=== PATIENT | female | born 1975 | race Hispanic/Latino ===

== ENCOUNTER 2016-12-13 08:13 | Emergency (ER) | payer OTHER ==
[~2016-12-13] VITALS: Ht 160 cm; Wt 78.9 kg
[~2016-12-13 08:13] MED LIST: FISH OIL 1,0001 EAC1 PO; IBUPROFEN800 MG PO; NORCO 5-325 TA1 EACH PO; PERCOCET 5-3251 EACH PO; SLEEP MED; VIVELLE-DOT1 EAC1 TD; ZOFRAN ODT4 MG PO; ZOLOFT50 MG PO
[2016-12-13] MEDS ORDERED: KEFLEX500 MG PO (09:43)
[2016-12-13] MEDS ORDERED: ONDANSETRON ODT8 MG PO (09:46)
== END 2016-12-13 10:31 | disposition home or self-care (01) ==
LOC: ED 08:13
DX: N10 Acute pyelonephritis (principal); Z90.710 Acquired absence of both cervix and uterus; Z88.5 Allergy status to narcotic agent; Z79.899 Other long term (current) drug therapy
CPT/HCPCS: 80053; 81001; 83605; 85025; 87077; 87088; 87186; 96361; 96365; 96375; 99283; J0696; J1885; J2405; J7030

== ENCOUNTER 2021-01-26 06:47 | Emergency (ER) | payer OTHER ==
[~2021-01-26] VITALS: Ht 160 cm; Wt 72.6 kg
[~2021-01-26 06:47] MED LIST changes: +CYCLOBENZAPRINE10 MG PO; +DICLOFENAC SODI75 MG PO; +KEFLEX500 MG PO; +ONDANSETRON ODT8 MG PO; +TYLENOL325 MG PO
[2021-01-26] MEDS ORDERED: MELATONIN5 M2 PO (07:10)
[2021-01-26] MEDS ORDERED: BACTRIM DS TAB1 EACH PO (10:08)
== END 2021-01-26 10:32 | disposition home or self-care (01) ==
LOC: ED 06:47
PROC: 0H9U0ZX Drainage of Left Breast, Open Approach, Diagnostic (ICD-10-PCS; principal; 2021-01-26)
DX: N61.1 Abscess of the breast and nipple (principal); Z90.710 Acquired absence of both cervix and uterus; Z88.5 Allergy status to narcotic agent
CPT/HCPCS: 10060; 76642; 77066; 99284-25; G0279

== ENCOUNTER 2021-10-09 10:00 | Emergency (ER) | payer OTHER ==
[~2021-10-09] VITALS: Ht 160 cm; Wt 72.6 kg
[~2021-10-09 10:00] MED LIST changes: +BACTRIM DS TAB1 EACH PO; +MELATONIN5 M2 PO
[2021-10-09] MEDS ORDERED: HYDROCODON-ACE1 EA10 PO (12:38)
== END 2021-10-09 12:50 | disposition home or self-care (01) ==
LOC: ED 10:00
DX: N64.4 Mastodynia (principal); Z88.5 Allergy status to narcotic agent
CPT/HCPCS: 36415; 76604; 76642; 85025; 99284-25

== ENCOUNTER 2023-06-23 09:33 | Emergency (ER) | payer OTHER ==
[~2023-06-23] VITALS: Ht 160 cm; Wt 79.2 kg
[~2023-06-23 09:33] MED LIST changes: +HYDROCODON-ACE1 EA10 PO
[2023-06-23] MEDS ORDERED: HYDROmorphone HCL 1 MG/ML SYR IV PRN (10:30)
[2023-06-23] MEDS ORDERED: SODIUM CHLORIDE 0.9% 1,000 ML IV ONE (10:30)
[2023-06-23] MEDS ORDERED: ondansetron HCL 4 MG/2 ML VIAL IV ONE (10:30)
[2023-06-23 10:35] LABS: BASOPHILS 0.4 % (0-2); EOSINOPHILS 0.3 % (0-6); HEMATOCRIT 36.4 % (35.0-50.0); HEMOGLOBIN 12.9 g/dL (12.0-18.0); LYMPHOCYTES 27.8 % (24-44); MCH 31.8 (27-36); MCHC 35.5 g/dl (30-36); MCV 89.6 fl (81-99); MONOCYTES 5.3 % (0-12); NEUTROPHILS 66.2 % (39-80); PLATELET COUNT 291 K/uL (140-440); RBC 4.06 M/ul (4.3-5.7); RDW 13.2 (10.5-15.0)
[2023-06-23 10:48] LABS: ALBUMIN 3.6 g/dL (3.4-5.0); ALBUMIN/GLOBULIN RATIO 0.82 (1.1-2.4); ANION GAP 14.8 (7-21); BILIRUBIN, TOTAL 0.3 ng/dL (0.2-1.0); BUN/CREATININE RATIO 14.47 (6.0-28.6); CALCIUM 9.4 mg/dL (8.5-10.1); CREATININE, SERUM 0.76 mg/dL (0.55-1.02); POTASSIUM 3.8 mmol/L (3.5-5.1)
[2023-06-23 11:17] LABS: BILIRUBIN, URINE NEGATIVE (negative); BLOOD/HGB, URINE NEGATIVE (Negative); KETONE, URINE NEGATIVE (Negative); LEUK ESTERASE, URINE NEGATIVE (negative); NITRITE, URINE NEGATIVE (negative)
[2023-06-23 11:51] VITALS: BP 130/84
== END 2023-06-23 11:56 | disposition home or self-care (01) ==
LOC: ED 09:33
PROVIDERS: Emergency Medicine
DX: K59.00 Constipation, unspecified (principal); Z88.5 Allergy status to narcotic agent
CPT/HCPCS: 36415; 74177; 80053; 81003; 83690; 85025; J1170; J2405; J7030; Q9967